=== PATIENT | female | born 1975 | race Caucasian/White ===

== ENCOUNTER 2020-05-08 09:15 | Outpatient (CLI) | payer OTHER | END 2020-05-08 09:16 | disposition home or self-care (01) | LOC: LAB 09:15 → COV 09:16 | PROVIDERS: ATTEND Internal Medicine | DX: Z77.21 Contact with and (suspected) exposure to potentially hazardous body fluids (principal) ==

== ENCOUNTER 2021-03-05 08:00 | Outpatient (CLI) | payer OTHER | END 2021-03-05 23:59 | disposition home or self-care (01) | LOC: LAB.N 08:00 | PROVIDERS: ATTEND Family Medicine | DX: R07.0 Pain in throat (principal); Z20.822 Contact with and (suspected) exposure to COVID-19 ==

== ENCOUNTER 2021-10-03 07:37 | Outpatient (CLI) | payer OTHER ==
[2021-10-03 08:08] LABS: CREATININE 0.9 mg/dL (0.4-1.0)
[2021-10-03] MEDS ORDERED: IOPAMIDOL-300 100 ML VIAL ONE (08:15)
[2021-10-03] MEDS ORDERED: IOPAMIDOL-300 100 ML VIAL IVP ONE (08:36)
--- NOTE | 2021-10-03 09:03 | CT Report ---
PROCEDURE: SOFT TISSUE NECK W INDICATIONS: CERVICAL LYMPHADENOPATHY CONTRAST: IV CONTRAST: Isovue 300 ml: 100 PO CONTRAST: *NO PO CONTRAST TECHNIQUE: After the administration of intravenous contrast, 3.0 mm axial sections acquired from the sella to th e aortic arch. Additional oblique axial 3.0 mm sections acquired through the pharynx. 3 mm thick co tabitha reformats were generated. For radiation dose reduction, the following was used: automated exp osure control, adjustment of mA and/or kV according to patient size. COMPARISON: None. FINDINGS: Image quality: Excellent. Lymph nodes: No enlarged lymph nodes seen throughout the neck. Vessels: Visualized vasculature appears patent. Neck spaces: There is mucosal prominence at the base of the tongue which partially obscures the vall eculae bilaterally. Finding could represent lingual tonsil hyperplasia or inflammation, however neopl astic process cannot be differentiated by imaging alone. Mucosal prominence noted in the left pirifor m sinus which is partially obscured by beam hardening artifact related to ACDF, orthopedic hardware. The nasopharynx, and pharynx demonstrate no mucosal lesions. The vocal cords, false vocal cords, epi glottis, and tongue base all appear normal. Extramucosal spaces appear unremarkable. No discrete mas s identified deep to the metallic BB overlies replaced over the right lateral neck soft tissues at th e level clinically palpable "lump". Glands: The parotid and submandibular glands appear normal. The thyroid is normal in size and there are no incidental findings. Miscellaneous: Visualized brain and orbits appear normal. Lung apices appear clear. Superficial so ft tissues appear normal. Bones: Postsurgical changes compatible with C5-C7 ACDF. No suspicious bony lesions. Visualized sinu ses and mastoids appear unremarkable. IMPRESSION: 1. No lymphadenopathy based on size criteria. 2. No discrete mass identified in the lateral right neck soft tissues at the site of clinically palpa ble lesion. Decision to biopsy lesion should be based on clinical assessment. 3. Mucosal prominence involving the base of the tongue and the left piriform sinus likely related to benign process, however neoplasm cannot be completely excluded by imaging alone. Recommend correlatio n with direct visualization to exclude neoplastic process. 4. Status post C5-C7 ACDF. Reviewed by: Pat Goodwin MD, PhD on 10/03/2021 9:02 AM [facility] Approved by: Pat Goodwin MD, PhD on 10/03/2021 9:02 AM [facility] Station ID: [id number]
== END 2021-10-03 07:38 | disposition home or self-care (01) ==
LOC: DI 07:37
PROVIDERS: ATTEND Surgery
DX: R59.0 Localized enlarged lymph nodes (principal); R93.3 Abnormal findings on diagnostic imaging of other parts of digestive tract
CPT/HCPCS: 36415; 70491; 82565; Q9967

== ENCOUNTER 2024-01-21 13:08 | Outpatient (CLI) | payer MEDICAID, OTHER ==
--- NOTE | 2024-01-21 16:48 | XRAY Report ---
PROCEDURE: Cervical Spine w/Flex/Ext 6+V INDICATIONS: CERVICAL STRAIN, WITH RADICULOPATHY TECHNIQUE: 7 views of the cervical spine were acquired. COMPARISON: None. FINDINGS: Bones: No fractures or dislocations to the C7 level. Evaluation of C7-T1 is limited due to overlying soft tissues. C5 C6 C7 ACDF changes are present. No suspicious bony lesions. Decreased range of beulah on between flexion and extension views noted, with preserved normal bony alignment. Oblique view do n ot show definite osseous neural foraminal stenosis. Soft tissues: Mild soft tissue prominence anterior to the ACDF hardware may be physiologic. IMPRESSION: Decreased range of motion Otherwise no acute findings Reviewed by: Marc Viveros MD on 01/21/2024 4:47 PM PDT Approved by: Marc Viveros MD on 01/21/2024 4:47 PM PDT Station ID: [id number]
== END 2024-01-21 23:59 | disposition home or self-care (01) ==
LOC: DI.N 13:08
PROVIDERS: ATTEND Physician Assistant
DX: S16.1XXA Strain of muscle, fascia and tendon at neck level, initial encounter (principal); M54.12 Radiculopathy, cervical region